=== PATIENT | female | born 1995 | race Two or more races ===

== ENCOUNTER 2018-11-18 19:45 | Emergency (ER) | payer MEDICAID ==
[2018-11-18 20:09] LABS: PLATELET COUNT 479 10^3/uL (150-400)
[2018-11-18] MEDS ORDERED: CEPHALEXIN 500 MG CAP PO ONE (22:16)
[2018-11-18] MEDS ORDERED: NS 1,000 ML IV ONE (22:24)
--- NOTE | 2018-11-18 22:30 | EDPHY ---
General Time Seen by Provider: 11/18/18 19:50 Narrative: CLINICAL IMPRESSION: Methamphetamine abuse, urinary tract infection ASSESSMENT/PLAN: 23 yo female with a hx of IV drug abuse presents to the emergency department by ambulance from the [facility] where she apparently had abused methamphetamine prior to arrival. Patient is very poor historian, unable to tell me how she got to [place], when she took meth or by what method she used methamphetamine. Patient also telling me that she thinks she may have fallen down. I see no outward signs of physical trauma. Patient initially had no physical complaints however when I palpated her skull and noted EMBLEM DRAWER IN shunt and patient then reported that she had a headache. She also has a history of hypokalemia secondary to chronic anorexia nervosa. She is hypokalemic today at 3, no other significant metabolic disturbance. She does appear to have urinary tract infection and urine is positive for methamphetamine. Remainder of drug screen is negative. Urine culture ordered, antibiotics initiated in the ED. Patient's vitals will need to stabilize, specifically tachycardia prior to reassessment. She has a nonfocal neurological exam despite complaints of headache although is under the influence of drugs and is not a clear historian at this time. Discussed with Dr. Mera. Patient will be monitored, given IV fluids, and reassessment later this evening or tomorrow morning. Low clinical concern at this time for shunt malfunction or need for emergent imaging. Case signed out to Dr. Del Castillo at midnight. Patient stable at time of signout. DIFFERENTIAL DX: Differential includes but not limited to methamphetamine intoxication, infection , trauma, electrolyte imbalance ED PROCEDURES: See lab and/or imaging results below ED COURSE: 10:15pm: Labs reviewed, urine culture ordered, antibiotic ordered, IV fluids ordered due to persistent tachycardia. + meth in urine. No focal neuro deficits. Discussed with Dr. Mera. Patient only complained of NEUMANN when I palpated her head to evaluate for trauma and noted a EMBLEM DRAWER IN shunt. No reports of vomiting, fever, seizures. Patient is a poor historian secondary to meth intoxication. CHIEF COMPLAINT: Methamphetamine abuse HPI: 23-year-old female presents to the emergency department by ambulance from the [facility] where she reportedly had used methamphetamine prior to arrival. Patient arrives stating that she does not remember doing methamphetamine nor does she remember how she did it. She does report a history of methamphetamine abuse. She also reports a history of chronic restrictive anorexia and problems with hypokalemia. Patient is not able to provide a history as to why she is here. She states that she may have fallen down. She states that she lives in [place] with her mother and believe she is in [facility]. She does not recollect how she got to [place] or how long she has been here. She denies alcohol. PAST MEDICAL HISTORY: History of anorexia nervosa since age 11, history of nonsustained V-tach secondary to electrolyte imbalance, history of hypokalemia. EMBLEM DRAWER IN shunt secondary to hydrocephalus See nurse/triage notes for additional history if applicable Pertinent Past Surgical History: EMBLEM DRAWER IN shunt, patient unable to tell me who performed the surgery but believes that was performed 1 year ago Family History: Unable to obtain Social History: States she lives with her mother in [place], abuses IV drugs REVIEW OF SYSTEMS: All other systems negative Constitutional: No fever, no chills, positive for appetite change. Eyes: No discharge, vision change ENT: No sore throat, congestion, ear pain. Cardiovascular: No chest pain, no palpitations. Respiratory: No cough, no shortness of breath. Gastrointestinal: No abdominal pain, no vomiting, diarrhea. Genitourinary: No hematuria, dysuria, flank pain, pelvic pain Musculoskeletal: No back pain, joint swelling, joint pain, myalgias. Skin: No rashes, color change. Neurological: Positive for headache, denies dizziness, weakness. PHYSICAL EXAM: General Appearance: Alert, oriented to person time, believe she is in [facility],, mildly agitated, appears to be under the influence of methamphetamine, anorexic, non-toxic appearing, tachycardic, afebrile no hypoxia. HEENT: Palpable shunt, right temporal region, TMs are clear bilaterally no perforation or FB, no injection, no evidence of serous or mucopurulent otitis. No hemotympanum or Mckinney sign Oropharynx clear is no erythema or exudates, no tonsillar hypertrophy or asymmetry. Poor dentition throughout Eyes: PERRLA, no acute vision change, nystagmus, swelling, discharge, pain or photosensitivity. Conjunctiva pink, no pallor or injection Neck: Supple, nontender, no lymphadenopathy, no midline pain, FROM, no meningismus. Respiratory: There are no retractions, lungs are clear to auscultation. Cardiac: Regular rate and rhythm, no murmurs or gallops. Gastrointestinal: Abdomen is soft, nontender, bowel sounds normal, no masses/ hernia, no rigidity, guarding or focal peritoneal findings. Neurological: [ Alert and oriented x 2, CN 2-12 grossly intact Skin: Warm, dry, no rashes, no nodules on palpation. Musculoskeletal: Extremities are symmetrical, full range of motion, no tenderness, deformity, swelling, or erythema. Psychiatric: Patient is oriented X 2, mild agitation MEDICAL DECISION MAKING: Patient was seen independently. Secondary supervising physician at time of evaluation was Dr. Susan Steward. Diagnosis: Methamphetamine abuse, tachycardia . New, requires workup Summary: See Assessment and Plan for summary of ED visit Clinical lab tests: ordered / reviewed.]. Decision to obtain medical records or history from someone other than the patient: EMS Review / Summarize previous medical records: Reviewed prior notes Discussed patient with another provider: Dr. Susan Steward Patient Progress: stable . - History Smoking Status: Current every day smoker - Objective Vital Signs: Initial Vital Signs Temperature (C) 36.9 C 11/18/18 19:48 Heart Rate 110 H 11/18/18 19:48 Respiratory Rate 18 11/18/18 19:48 Blood Pressure 93/80 L 11/18/18 19:48 O2 Sat (%) 98 11/18/18 19:48 O2 Delivery Mode Room Air Allergies/Adverse Reactions: Penicillins Allergy (Unknown, Verified 07/23/16 22:08) Rash [employer] Allergy (Uncoded 07/23/16 22:08) Home Medications: Medication Instructions Recorded Albuterol [Proventil Inhaler HFA 2 puffs IH DAILY PRN 07/24/16 (*)] Calcium Carbonate [Tums 500MG (*)] 500 mg PO PRN PRN 07/24/16 Melatonin [Melatonin 3 MG (*)] 9 mg PO HS PRN 07/24/16 Acetaminophen [Tylenol 325mg (*)] 650 mg PO Q4HRS PRN #0 tab 07/25/16 Potassium Chloride 20 meq PO DAILY #0 tablet.er 07/25/16 Laboratory Results: Laboratory Results 11/18/18 19:50 11/18/18 19:50 11/18/18 11/18/18 11/18/18 20:50 19:50 19:50 WBC RBC Hgb Hct MCV MCH MCHC RDW Plt Count MPV Neut % (Auto) Lymph % (Auto) [place] % (Auto) Eos % (Auto) Baso % (Auto) Nucleat RBC Rel Count Absolute Neuts (auto) Absolute Lymphs (auto) Absolute Monos (auto) Absolute Eos (auto) Absolute Basos (auto) Absolute Nucleated RBC Immature Gran % Immature Gran # Platelet Estimate Polychromasia Microcytic Cells Elliptocytes Schistocytes Smear Review By Sodium 133 mEq/L L mEq/L (135-145) Potassium 3.4 mEq/L L mEq/L (3.5-5.2) Chloride 103 mEq/L mEq/L (97-110) Carbon Dioxide 20 mEq/l L mEq/l (22-31) Anion Gap 10 mEq/L mEq/L (6-14) BUN 21 mg/dL mg/dL (7-23) Creatinine 0.7 mg/dL mg/dL (0.6-1.0) Estimated GFR > 60 Glucose 77 mg/dL mg/dL (70-100) Calcium 9.9 mg/dL mg/dL (8.5-10.4) Beta HCG, Qual NEGATIVE Urine Color YELLOW Urine Appearance MODERATELY TURBID Urine pH 7.0 (5.0-7.5) Ur Specific [place] 1.023 (1.002-1.030) Urine Protein 2+ H (NEGATIVE) Urine Ketones 2+ H (NEGATIVE) Urine Blood NEGATIVE (NEGATIVE) Urine Nitrate NEGATIVE (NEGATIVE) Urine Bilirubin NEGATIVE (NEGATIVE) Urine Urobilinogen NEGATIVE EU EU (0.2-1.0) Ur Leukocyte Esterase 3+ H (NEGATIVE) Urine RBC 5-10 /hpf H /hpf (0-3) Urine WBC 50-182 /hpf H /hpf (0-3) Ur Epithelial Cells TRACE /lpf /lpf (NONE-1+) Urine Bacteria 3+ /hpf H /hpf (NONE SEEN) Urine Mucus 2+ /lpf H /lpf (NONE-1+) Urine Glucose NEGATIVE (NEGATIVE) Urine Opiates Screen NEGATIVE (NEGATIVE) Urine Barbiturates NEGATIVE (NEGATIVE) Ur Phencyclidine Scrn NEGATIVE (NEGATIVE) Ur Amphetamine Screen NON-NEGATIVE H (NEGATIVE) U Benzodiazepines Scrn NEGATIVE (NEGATIVE) Urine Cocaine Screen NEGATIVE (NEGATIVE) U Marijuana (THC) Screen NEGATIVE (NEGATIVE) Ethyl Alcohol < 10 mg/dL mg/dL (0-10) 11/18/18 19:50 WBC 10.68 10^3/uL H 10^3/uL (3.80-9.50) RBC 4.66 10^6/uL 10^6/uL (4.18-5.33) Hgb 8.9 g/dL L g/dL (12.6-16.3) Hct 30.9 % L % (38.0-47.0) MCV 66.3 fL L fL (81.5-99.8) MCH 19.1 pg L pg (27.9-34.1) MCHC 28.8 g/dL L g/dL (32.4-36.7) RDW 18.7 % H % (11.5-15.2) Plt Count 479 10^3/uL H 10^3/uL (150-400) MPV 10.2 fL fL (8.7-11.7) Neut % (Auto) 66.1 % % (39.3-74.2) Lymph % (Auto) 21.3 % % (15.0-45.0) [place] % (Auto) 11.1 % % (4.5-13.0) Eos % (Auto) 0.4 % L % (0.6-7.6) Baso % (Auto) 0.7 % % (0.3-1.7) Nucleat RBC Rel Count 0.0 % % (0.0-0.2) Absolute Neuts (auto) 7.07 10^3/uL H 10^3/uL (1.70-6.50) Absolute Lymphs (auto) 2.27 10^3/uL 10^3/uL (1.00-3.00) Absolute Monos (auto) 1.19 10^3/uL H 10^3/uL (0.30-0.80) Absolute Eos (auto) 0.04 10^3/uL 10^3/uL (0.03-0.40) Absolute Basos (auto) 0.07 10^3/uL 10^3/uL (0.02-0.10) Absolute Nucleated RBC 0.00 10^3/uL 10^3/uL (0-0.01) Immature Gran % 0.4 % % (0.0-1.1) Immature Gran # 0.04 10^3/uL 10^3/uL (0.00-0.10) Platelet Estimate INCREASED H (ADEQ) Polychromasia 1+ H Microcytic Cells 2+ H Elliptocytes 2+ H Schistocytes 1+ H Smear Review By Pending Sodium Potassium Chloride Carbon Dioxide Anion Gap BUN Creatinine Estimated GFR Glucose Calcium Beta HCG, Qual Urine Color Urine Appearance Urine pH Ur Specific Mccl[place] Urine Protein Urine Ketones Urine Blood Urine Nitrate Urine Bilirubin Urine Urobilinogen Ur Leukocyte Esterase Urine RBC Urine WBC Ur Epithelial Cells Urine Bacteria Urine Mucus Urine Glucose Urine Opiates Screen Urine Barbiturates Ur Phencyclidine Scrn Ur Amphetamine Screen U Benzodiazepines Scrn Urine Cocaine Screen U Marijuana (THC) Screen Ethyl Alcohol Medications Given: Discontinued Medications Cephalexin HCl (Keflex) 500 mg PO EDNOW ONE PRN Reason: Protocol Stop: 11/18/18 22:17 Last Admin: 11/18/18 22:22 Dose: 500 mg Sodium Chloride (Ns) 1,000 mls @ 0 mls/hr IV EDNOW ONE; Wide Open PRN Reason: Protocol Stop: 11/18/18 22:25 Last Admin: 11/18/18 22:37 Dose: 1,000 mls Departure - Departure Condition: Good Referrals: NONE *PRIMARY CARE P,. [Primary Care Provider] - As per Instructions
[2018-11-19] MEDS ORDERED: NS 1,000 ML IV ONE ×2 (00:15→02:31)
[2018-11-19] MEDS ORDERED: LORazepam 2 MG/ML INJ IVP ONE (02:32)
[2018-11-19] MEDS ORDERED: OLANZapine 5 MG TAB PO ONE (05:26)
[2018-11-19 06:01] LABS: CREATINE KINASE 291 IU/L (0-156)
[2018-11-19] MEDS ORDERED: CEPHALEXIN 500 MG CAP PO ONE (08:38)
[2018-11-19 10:09] VITALS: BP 104/69
== END 2018-11-19 10:07 | disposition home or self-care (01) ==
LOC: EDUNIT#
DX: F15.10 Other stimulant abuse, uncomplicated (principal); N39.0 Urinary tract infection, site not specified; E86.9 Volume depletion, unspecified; E87.6 Hypokalemia; F50.00 Anorexia nervosa, unspecified; F17.200 Nicotine dependence, unspecified, uncomplicated; Z98.2 Presence of cerebrospinal fluid drainage device; Z88.0 Allergy status to penicillin
CPT/HCPCS: 80305; 96374; G0480; J2060